=== PATIENT | male | born 1985 | race Caucasian/White ===

== ENCOUNTER 2016-10-07 10:55 | Emergency (ER) | payer SELFPAY ==
[~2016-10-07] VITALS: Ht 182.9 cm; Wt 75.0 kg
[~2016-10-07 10:55] MED LIST: ANUSOL-HC SUPPO25 MG RC; CEPHALEXIN500 M1 PO; COLACE 100100 MG/CAP PO; NO HOME MEDICATIONS
[2016-10-07 11:06] VITALS: BP 151/90; TEMP 98.1
[2016-10-07] MEDS ORDERED: IBU800 M1 PO (11:08)
[2016-10-07] MEDS ORDERED: AMOXICILLIN 25250 MG (11:08)
[2016-10-07 12:35] VITALS: PULSE 60
== END 2016-10-07 12:35 | disposition home or self-care (01) ==
LOC: COL.ER 10:55
DX: G89.18 Other acute postprocedural pain (principal); K08.89 Other specified disorders of teeth and supporting structures; K08.409 Partial loss of teeth, unspecified cause, unspecified class

== ENCOUNTER 2018-05-06 08:34 | Emergency (ER) | payer SELFPAY ==
[~2018-05-06] VITALS: Ht 182.9 cm; Wt 81.8 kg
[~2018-05-06 08:34] MED LIST changes: +AMOXICILLIN 25250 MG; +IBU800 M1 PO
[2018-05-06 08:42] VITALS: TEMP 99.6
[2018-05-06 09:17] LABS: BASO % 0.3 % (0.0-2.0); EOS % 0.1 % (0-4.0); GRAN % 79.2 % (42.2-75.2); HEMATOCRIT 47.2 % (42.0-52.0); HEMOGLOBIN 15.5 g/dl (13.5-18.0); LYMPH # 1.2 (1.2-3.4); LYMPH % 13.1 % (20.0-51.0); MEAN CELL VOLUME 88 fl (80.0-100.0); MEAN CORPUSCULAR HEMOGLOBIN 29 pg (27.0-31.0); MEAN CORPUSCULAR HGB CONC 33 g/dl (33.0-37.0); MEAN PLATELET VOLUME 10.2 fl (7.4-10.4); MONO # 0.6 (0.1-0.6); MONO % 6.8 % (1.7-9.3); PLATELET COUNT 186 K/mm3 (130-400); RED BLOOD COUNT 5.34 M/mm3 (4.20-5.60); REDCELL DISTRIBUTION WIDTH-CV 12.6 % (11.5-14.5)
[2018-05-06 09:30] LABS: ALBUMIN 3.5 gm/dL (3.5-5.0); BILIRUBIN,TOTAL 0.3 mg/dL (0.0-1.0); C-REACTIVE PROTEIN 3.3 mg/dL (0.0-0.9); CALCIUM 8.5 mg/dL (8.4-10.2); CREATININE, serum 0.86 mg/dL (0.66-1.25); POTASSIUM 3.9 mmol/L (3.4-5.0); TOTAL PROTEIN 6.1 gm/dL (6.4-8.2)
[2018-05-06 09:55] LABS: COLLECTION METHOD CLEAN CATCH
[2018-05-06 10:17] LABS: MUCOUS Present /lpf; PH 5 (5-8); SQUAMOUS EPITHELIAL None Seen /hpf; URINE APPEARANCE Clear; URINE BACTERIA None Seen /hpf; URINE BILIRUBIN Negative (NEGATIVE); URINE BLOOD Negative (NEGATIVE); URINE COLOR Yellow; URINE GLUCOSE Negative (NEGATIVE); URINE KETONE Negative (NEGATIVE); URINE LEUKOCYTE ESTERASE Negative (NEGATIVE); URINE NITRATE Negative (NEGATIVE); URINE PROTEIN(semi-quant) Negative (NEGATIVE); URINE RBC None Seen /hpf; URINE UROBILINOGEN Negative (NEGATIVE)
[2018-05-06 10:34] LABS: TRICYCLIC ANTIDEPRESS URINE NEGATIVE
[2018-05-06] MEDS ORDERED: ZOFRAN ODT4 MG PO (10:39)
[2018-05-06 11:00] VITALS: BP 130/76; PULSE 85
[2018-05-09] MEDS ORDERED: CIPRO 500MG TA500 MG PO (12:43)
== END 2018-05-06 11:02 | disposition home or self-care (01) ==
LOC: COL.ER 08:34
PROVIDERS: Family Medicine
DX: R19.7 Diarrhea, unspecified (principal); E86.0 Dehydration
CPT/HCPCS: J7030